=== PATIENT | female | born 2000 | race Two or more races ===

== ENCOUNTER 2023-03-19 11:07 | Observation (INO) | payer MEDICAID ==
[~2023-03-19] VITALS: Ht 167.6 cm; Wt 124.2 kg
[2023-03-19 11:20] VITALS: BP 129/93; PULSE 88; RESP 18; O2SAT 100
== END 2023-03-19 12:54 | disposition home or self-care (01) ==
LOC: ER 11:07 → LDRP 11:45
PROVIDERS: ADMIT Obstetrics & Gynecology; ATTEND Obstetrics & Gynecology
DX: O40.2XX0 Polyhydramnios, second trimester, not applicable or unspecified (principal); O60.02 Preterm labor without delivery, second trimester; O36.8120 Decreased fetal movements, second trimester, not applicable or unspecified; Z3A.24 24 weeks gestation of pregnancy
CPT/HCPCS: 59025; 81002; 94760; 99284; G0378

== ENCOUNTER 2023-06-11 11:23 | Observation (INO) | payer MEDICAID | END 2023-06-11 13:25 | disposition home or self-care (01) | LOC: UNDOADMOB 11:23 → LDRP 11:23 | PROVIDERS: ADMIT Obstetrics & Gynecology; ATTEND Obstetrics & Gynecology | DX: O24.419 Gestational diabetes mellitus in pregnancy, unspecified control (principal); Z3A.36 36 weeks gestation of pregnancy | CPT/HCPCS: 59025; 76818; 81002; 82948; 94760; G0378 ==

== ENCOUNTER 2023-06-16 12:06 | Observation (INO) | payer MEDICAID ==
[~2023-06-16] VITALS: Ht 167.6 cm; Wt 124.3 kg
== END 2023-06-16 13:20 | disposition home or self-care (01) ==
LOC: LDRP 12:06 → UNDOADMOB 12:06 → LDRP 12:16 → UNDODISOB 13:20
PROVIDERS: ADMIT Obstetrics & Gynecology; ATTEND Obstetrics & Gynecology
DX: O24.419 Gestational diabetes mellitus in pregnancy, unspecified control (principal); Z3A.36 36 weeks gestation of pregnancy
CPT/HCPCS: 59025; 76818; 81002; 82948; 82962; 94760; G0378

== ENCOUNTER 2023-06-19 10:00 | Observation (INO) | payer MEDICAID ==
[2023-06-19] MEDS ORDERED: PREN-96 PO (11:11)
== END 2023-06-19 11:35 | disposition home or self-care (01) ==
LOC: LDRP 10:00
PROVIDERS: ADMIT Obstetrics & Gynecology; ATTEND Obstetrics & Gynecology
DX: O24.419 Gestational diabetes mellitus in pregnancy, unspecified control (principal); Z3A.37 37 weeks gestation of pregnancy; Z79.899 Other long term (current) drug therapy
CPT/HCPCS: 59025; 76818; 81002; 82948; 82962; 94760; G0378

== ENCOUNTER 2023-06-22 11:58 | Observation (INO) | payer MEDICAID ==
[~2023-06-22 11:58] MED LIST: PREN-96 PO
== END 2023-06-22 13:51 | disposition home or self-care (01) ==
LOC: UNDOADMOB 11:58 → LDRP 11:58 → UNDODISOB 13:51
PROVIDERS: ADMIT Obstetrics & Gynecology; ATTEND Obstetrics & Gynecology
DX: O24.419 Gestational diabetes mellitus in pregnancy, unspecified control (principal); Z3A.37 37 weeks gestation of pregnancy
CPT/HCPCS: 59025; 76818; 81002; 94760; G0378

== ENCOUNTER 2023-06-25 12:08 | Observation (INO) | payer MEDICAID ==
[2023-06-25] MEDS ORDERED: METF-370 PO (12:41)
== END 2023-06-25 13:19 | disposition home or self-care (01) ==
LOC: UNDOADMOB 12:08 → LDRP 12:08 → UNDODISOB 13:19
PROVIDERS: ADMIT Obstetrics & Gynecology; ATTEND Obstetrics & Gynecology
DX: O24.419 Gestational diabetes mellitus in pregnancy, unspecified control (principal); Z3A.38 38 weeks gestation of pregnancy
CPT/HCPCS: 59025; 76818; 81002; 82948; 82962; 94760; G0378

== ENCOUNTER 2023-06-29 08:22 | Observation (INO) | payer MEDICAID ==
[~2023-06-29 08:22] MED LIST changes: +METF-370 PO
== END 2023-06-29 10:06 | disposition home or self-care (01) ==
LOC: UNDOADMOB 08:22 → LDRP 08:22 → UNDODISOB 10:06
PROVIDERS: ADMIT Obstetrics & Gynecology; ATTEND Obstetrics & Gynecology
DX: O24.419 Gestational diabetes mellitus in pregnancy, unspecified control (principal); Z3A.38 38 weeks gestation of pregnancy
CPT/HCPCS: 59025; 76818; 81002; 82948; 94760; G0378

== ENCOUNTER 2023-07-01 12:10 | Observation (INO) | payer MEDICAID | END 2023-07-01 14:28 | disposition home or self-care (01) | LOC: LDRP 12:10 → UNDOADMOB 12:10 → LDRP 12:16 → UNDODISOB 14:28 | PROVIDERS: ADMIT Obstetrics & Gynecology; ATTEND Obstetrics & Gynecology | DX: O24.419 Gestational diabetes mellitus in pregnancy, unspecified control (principal); Z3A.39 39 weeks gestation of pregnancy | CPT/HCPCS: 59025; 76818; 81002; 82948; 82962; 94760; G0378 ==

== ENCOUNTER 2023-07-04 03:52 | Inpatient (IN) | payer BC, MEDICAID ==
[~2023-07-04] VITALS: Ht 167.6 cm; Wt 127.0 kg
[2023-07-04] VITALS (10 sets, daily range): BP systolic 100–131; BP diastolic 56–76; PULSE 82–97; RESP 16–18; TEMP 97.7–98.6; O2SAT 88–99
[2023-07-04] MEDS ORDERED: LIDOCAINE 2%HCL (LOCAL ANESTH.) INJ 20ML MDV IJ PRN (04:15)
[2023-07-04] MEDS ORDERED: BUTORPHANOL TARTRATE 2 MG/1 ML VIAL IV PRN ×2 (04:15)
[2023-07-04] MEDS ORDERED: PROMETHAZINE HCL 25 MG/ML 1ML IV PRN (04:15)
[2023-07-04] MEDS ORDERED: DERMOPLAST 60ML BOTTLE TOP PRN (04:15)
[2023-07-04] MEDS ORDERED: WITCH HAZEL-GLYCERIN PAD TOP PRN (04:15)
[2023-07-04] MEDS ORDERED: PHISODERM TOP SOLN 240ML BTL TOP PRN (04:15)
[2023-07-04 04:39] LABS: Basophils # (auto) 0 10 ^3/uL (0-0.2); Eosinophils # (auto) 0.1 10 ^3/uL (0-0.8); Hemoglobin 10.4 g/dL (12.2-16.2); Monocytes # (auto) 0.7 10 ^3/uL (0-1.3); Red Blood Cells 4.27 10^6/uL (4.0-5.20)
[2023-07-04 04:46] LABS: Basophils % (auto) 0.4 % (0.0-2.0); Eosinophils % (auto) 0.8 % (0.0-7.0); Lymphocytes # (auto) 1.7 10 ^3/uL (0.4-5.4); Lymphocytes % (auto) 14.1 % (10.0-50.0); Mean Corpuscular Hemoglobin 24.4 pg (28.0-32.0); Mean Corpuscular Hgb Conc. 31.6 g/dL (32.0-36.0); Mean Corpuscular Volume 77.2 fL (80.0-100.0); Monocytes % (auto) 6.1 % (0.0-12.0); Neutrophils # (auto) 9.2 10 ^3/uL (1.6-8.6); Neutrophils % (auto) 78.6 % (37.0-80.0); Red Cell Distribution Width 17.5 % (11.8-14.3); White Blood Cell 11.7 10^3/uL (4.4-10.8)
[2023-07-04 04:53] LABS: Amphetamine Screen, Urine Neg (NEGATIVE); Barbiturate Scree,Urine Neg (NEGATIVE); Benzodiazephine Screen, Urine Neg (NEGATIVE); Cannabinoid Screen, Urine Neg (NEGATIVE); Cocaine Screen, Urine Neg (NEGATIVE); Opiate Scree,Urine Neg (NEGATIVE); Phencyclidine Screen, Urine Neg (NEGATIVE)
[2023-07-04 04:56] LABS: Alanine Aminotransferase 10 U/L (7-40); Albumin 4.3 g/dL (3.2-4.8); Alkaline Phosphatase 170 U/L (46-116); Anion Gap 9 (5-15); Aspartate Aminotransferase 11 U/L (13-40); BUN/Creatinine Ratio 13.3 (10.0-20.0); Bilirubin, Total 0.3 mg/dL (0.2-1.0); Blood Urea Nitrogen 8 mg/dL (9-23); Calcium 9.7 mg/dL (8.7-10.4); Carbon Dioxide 21 mmol/L (20-30); Chloride 107 mmol/L (98-107); Glucose 86 mg/dL (74-106); Potassium 3.4 mmol/L (3.5-5.1); Sodium 137 mmol/L (136-145); Total Protein 6.9 g/dL (5.7-8.2)
[2023-07-04 05:27] LABS: Urine Bacteria FEW /hpf (None Seen); Urine Blood Negative /uL (Negative); Urine Clarity Clear (Clear); Urine Color Colorless (Yellow); Urine Protein, UAD Negative (Negative); Urine Specific Gravity 1.012 (1.001-1.035); Urine Urobilinogen Normal (Negative); Urine WBC 3 /hpf (0 - 5)
[2023-07-04 05:40] LABS: INR 0.94 (0.9-1.15); Partial Thromboplastin Time 24.9 SEC (24.5-34.5); Prothrombin Time 9.9 sec (9.3-11.8)
[2023-07-04] MEDS: miSOPROStol 50 MCG per PRE-CUT 1/2 TAB PO PRN (07:58)
[2023-07-04] MEDS: LACTATED RINGER'S 1,000 ML IV SCH ×2 (08:55→11:30)
[2023-07-04] MEDS: POTASSIUM CHL 20 Meq TABLET PO ONE (08:55)
[2023-07-04] MEDS: ACCU-CHEK COMFORT CURVE STRIP VI SCH (09:04)
[2023-07-04] MEDS: LACTATED RINGER'S 1,000 ML IV ONE (11:30)
[2023-07-04] MEDS: ceFAZolin 2 GM/D5W100ml 100 ML IV ONE (11:59)
[2023-07-04] MEDS ORDERED: LACT. RINGERS/OXYTOCIN 20UNITS 1,000 ML IV ONE (12:00)
[2023-07-04] MEDS ORDERED: ceFAZolin 1GM/50ML 50 ML IV SCH ×2 (12:00→15:00)
[2023-07-04] MEDS: GUM (CHEWING) 1 GUM CHEW CHEW ONE ×2 (12:00→15:00)
[2023-07-04] MEDS ORDERED: ONDANSETRON HCL 4 MG/2 ML VIAL IV PRN ×2 (12:00→13:45)
[2023-07-04] MEDS ORDERED: DOCU-94 PO (12:15)
[2023-07-04] MEDS ORDERED: CEPH500C PO (12:15)
[2023-07-04] MEDS ORDERED: HYDR-4902 PO (12:15)
[2023-07-04] MEDS ORDERED: IBUP-1456 PO (12:15)
[2023-07-04] MEDS ORDERED: MORPHINE SULF PF 5 MG/10 ML VIAL ONE (12:20)
[2023-07-04] MEDS ORDERED: fentaNYL CITRATE 100 MCG/2 ML VL ONE (12:20)
[2023-07-04] MEDS ORDERED: oxyTOCIN 10 UNIT/ML 10ML VIAL ONE (12:21)
[2023-07-04] MEDS ORDERED: ONDANSETRON HCL 4 MG/2 ML VIAL ONE (12:21)
[2023-07-04] MEDS ORDERED: DexAMETHasone SOD PHOS 10MG/1ML VIAL INJ ONE (12:21)
[2023-07-04] MEDS: CARBOPROST TROMETHAMINE 250 MCG/1ML VIAL IM ONE (13:00)
[2023-07-04] MEDS ORDERED: diphenhdrAMINE HCL 50 MG/1 ML VL ONE (13:15)
[2023-07-04] MEDS ORDERED: NALOXONE HCL 0.4 MG/ML VIAL IV PRN (13:45)
[2023-07-04] MEDS ORDERED: HYDROmorphone HCL 2 MG/ML VL/or syr IV PRN (13:45)
[2023-07-04] MEDS: NALBUPHINE HCL 10 MG/1ml INJECTION IV ONE (13:45)
[2023-07-04] MEDS ORDERED: diphenhdrAMINE HCL 50 MG/1 ML VL IV PRN (13:45)
[2023-07-04] MEDS: DIPHENOXYLATE W/ATROPINE 2.5 MG TAB PO SCH (14:49)
[2023-07-04] MEDS: LACT. RINGERS/OXYTOCIN 20UNITS 1,000 ML IV ONE (15:00)
[2023-07-04] MEDS ORDERED: MORPHINE SULFATE 4 MG/ML SYR/VIAL IV PRN (15:00)
[2023-07-04 16:02] LABS: Basophils # (auto) 0 10 ^3/uL (0-0.2); Basophils % (auto) 0.3 % (0.0-2.0); Eosinophils # (auto) 0 10 ^3/uL (0-0.8); Hematocrit 33.5 % (36.0-46.0); Hemoglobin 10.4 g/dL (12.2-16.2); Mean Corpuscular Hemoglobin 24.1 pg (28.0-32.0); Mean Corpuscular Volume 77.9 fL (80.0-100.0)
[2023-07-04 16:05] LABS: Eosinophils % (auto) 0.1 % (0.0-7.0); Lymphocytes % (auto) 6.8 % (10.0-50.0); Monocytes # (auto) 0.3 10 ^3/uL (0-1.3); Monocytes % (auto) 1.8 % (0.0-12.0); Red Cell Distribution Width 17.4 % (11.8-14.3); White Blood Cell 15.4 10^3/uL (4.4-10.8)
[2023-07-04] MEDS: ACETAMINOPHEN IV 1000 MG/100ML (10MG/ML) IV PRN (16:10)
[2023-07-04] MEDS: ONDANSETRON HCL 4 MG/2 ML VIAL IV PRN (17:37)
[2023-07-04 20:01] LABS: Eosinophils # (auto) 0 10 ^3/uL (0-0.8); Mean Corpuscular Hgb Conc. 31.1 g/dL (32.0-36.0); Monocytes # (auto) 0.3 10 ^3/uL (0-1.3)
[2023-07-04 20:03] LABS: Basophils # (auto) 0.1 10 ^3/uL (0-0.2); Basophils % (auto) 0.3 % (0.0-2.0); Hemoglobin 10.3 g/dL (12.2-16.2); Lymphocytes % (auto) 5.7 % (10.0-50.0); Mean Corpuscular Hemoglobin 24.2 pg (28.0-32.0); Mean Corpuscular Volume 77.8 fL (80.0-100.0); Neutrophils # (auto) 15.4 10 ^3/uL (1.6-8.6); Red Blood Cells 4.25 10^6/uL (4.0-5.20); Red Cell Distribution Width 17.7 % (11.8-14.3); White Blood Cell 16.7 10^3/uL (4.4-10.8)
[2023-07-04] MEDS: ceFAZolin 1GM/50ML 50 ML IV SCH (20:19)
[2023-07-05] VITALS (12 sets, daily range): BP systolic 93–124; BP diastolic 49–70; PULSE 74–99; RESP 14–24; TEMP 97.5–98.6; O2SAT 92–98
[2023-07-05] MEDS: HYDROmorphone HCL 2 MG/ML VL/or syr IV PRN (00:47)
[2023-07-05 06:57] LABS: Basophils # (auto) 0 10 ^3/uL (0-0.2); Basophils % (auto) 0.2 % (0.0-2.0); Eosinophils # (auto) 0 10 ^3/uL (0-0.8); Hemoglobin 9.5 g/dL (12.2-16.2); Lymphocytes # (auto) 2.1 10 ^3/uL (0.4-5.4); Monocytes # (auto) 1.1 10 ^3/uL (0-1.3); Red Cell Distribution Width 17.5 % (11.8-14.3)
[2023-07-05 07:00] LABS: Hematocrit 30.4 % (36.0-46.0); Lymphocytes % (auto) 14.2 % (10.0-50.0); Mean Corpuscular Hemoglobin 24.4 pg (28.0-32.0); Mean Corpuscular Hgb Conc. 31.4 g/dL (32.0-36.0); Mean Corpuscular Volume 77.7 fL (80.0-100.0); Monocytes % (auto) 7.5 % (0.0-12.0); Neutrophils # (auto) 11.4 10 ^3/uL (1.6-8.6); Neutrophils % (auto) 78.1 % (37.0-80.0); Red Blood Cells 3.91 10^6/uL (4.0-5.20); White Blood Cell 14.6 10^3/uL (4.4-10.8)
[2023-07-05] MEDS ORDERED: HYDROcodone-ACET 5/325MG TAB PO PRN (08:45)
[2023-07-05] MEDS ORDERED: BISACODYL 10 MG RECT SUPP PR PRN (08:45)
[2023-07-05] MEDS: HYDROcodone-ACET 5/325MG TAB PO PRN (09:11)
[2023-07-05] MEDS: DOCUSATE CALCIUM 240 MG CAP PO SCH (09:55)
[2023-07-05] MEDS: DOCUSATE SOD 100 MG CAP PO SCH (09:56)
[2023-07-05] MEDS: SIMETHICONE 80 MG CHEWABLE TABLET PO SCH (12:00)
[2023-07-05] MEDS: IBUPROFEN 800 MG TAB PO PRN (20:04)
[2023-07-06 03:00] VITALS: BP 109/64; PULSE 90; RESP 18; TEMP 98.6; O2SAT 98
[2023-07-06 07:00] VITALS: BP 112/72; PULSE 97; RESP 18; TEMP 97.8; O2SAT 98
[2023-07-06 08:07] LABS: RPR Non Reactive (Non Reactive)
[2023-07-06 08:59] LABS: Basophils # (auto) 0 10 ^3/uL (0-0.2); Eosinophils # (auto) 0.1 10 ^3/uL (0-0.8); Monocytes # (auto) 0.6 10 ^3/uL (0-1.3); Nucleated Red Blood Cells % 0.1 %
[2023-07-06 09:00] LABS: Basophils % (auto) 0.5 % (0.0-2.0); Eosinophils % (auto) 1.4 % (0.0-7.0); Hematocrit 28.9 % (36.0-46.0); Lymphocytes # (auto) 2.4 10 ^3/uL (0.4-5.4); Lymphocytes % (auto) 27.3 % (10.0-50.0); Mean Corpuscular Hemoglobin 24.4 pg (28.0-32.0); Mean Corpuscular Hgb Conc. 31.2 g/dL (32.0-36.0); Mean Corpuscular Volume 78.3 fL (80.0-100.0); Neutrophils # (auto) 5.6 10 ^3/uL (1.6-8.6); Neutrophils % (auto) 63.8 % (37.0-80.0); Red Blood Cells 3.69 10^6/uL (4.0-5.20); Red Cell Distribution Width 17.4 % (11.8-14.3); White Blood Cell 8.8 10^3/uL (4.4-10.8)
[2023-07-06 11:00] VITALS: BP 117/71; PULSE 77; RESP 18; TEMP 97.8; O2SAT 94
[2023-07-06 15:00] VITALS: BP 115/67; PULSE 88; RESP 18; TEMP 98.4; O2SAT 96
[2023-07-06 18:30] VITALS: BP_SYST 125; BP_SYST 130; BP_DIAS 75; BP_DIAS 79; PULSE 81; PULSE 85; RESP 16; RESP 20; TEMP 97.9; TEMP 98.8; O2SAT 98
[2023-07-07 19:06] LABS: Treponema pallidum Ab (FTA-Ab) Non Reactive (Non Reactive)
== END 2023-07-06 21:30 | disposition home or self-care (01) | DRG 788 ==
LOC: LDRP 04:03 → UNDOADMIN 04:03 → LDRP 04:08
PROVIDERS: ADMIT Obstetrics & Gynecology; ATTEND Obstetrics & Gynecology
PROC: 10D00Z1 Extraction of Products of Conception, Low, Open Approach (ICD-10-PCS; principal; 2023-07-04 12:22)
DX: O24.429 Gestational diabetes mellitus in childbirth, unspecified control (principal); O77.0 Labor and delivery complicated by meconium in amniotic fluid; O99.214 Obesity complicating childbirth; E66.01 Morbid (severe) obesity due to excess calories; Z3A.39 39 weeks gestation of pregnancy; Z37.0 Single live birth; O76 Abnormality in fetal heart rate and rhythm complicating labor and delivery
CPT/HCPCS: 36415; 59025; 80053; 80307; 81001; 82947; 82948; 82962; 85025; 85610; 85730; 86592; 86850; 86900; 86901; 94760; 94762; 96360; 96361; 96365; 96366; G0378; J0131; J1100; J2405; J2590